=== PATIENT | male | born 1985 | race Hispanic/Latino ===

== ENCOUNTER 2022-08-30 16:58 | Emergency (ER) | payer OTHER, SELFPAY ==
[2022-08-30 17:21] VITALS: BP 144/82; PULSE 66; RESP 16; TEMP 37.3; O2SAT 100
--- NOTE | 2022-08-30 17:40 | ED.BACK ---
HPI - Back Pain/Injury General Chief Complaint: Back Pain/Injury Stated Complaint: pain in lower back Time Seen by Provider: 08/30/22 17:40 Source: [employer] Mode of arrival: ambulatory Limitations: no limitations History of Present Illness HPI Narrative: 37-year-old male presents with complaint of left-sided left low back pain radiating into left buttock and down left leg. Reports pain for 5 days. States started after bending down and picking something up off the ground. Taking [id number] meds pain medications with no relief. Ambulatory with steady gait. Denies numbness, weakness to lower extremities. No loss of bowel or bladder. No other complaints today. All systems reviewed and negative except as noted above. Related Data Allergies Allergy/AdvReac Type Severity Reaction Status Date / Time No Known Allergies Allergy Verified 08/30/22 17:24 Review of Systems Review of Systems: CONSTITUTIONAL: Denies fever, chills, or sweats. EYES: Denies visual changes, redness, or discharge. ENT: Denies rhinorrhea, congestion, sore throat, or otalgia. CARDIOVASCULAR: Denies chest pain, palpitations, or edema. RESPIRATORY: Denies cough or dyspnea. GASTROINTESTINAL: Denies abdominal pain, nausea, vomiting, or diarrhea. GENITOURINARY: Denies dysuria or hematuria. SKIN: Denies rash or itching. MUSCULOSKELETAL: Reports left lower back pain with radiation to left lower extremity. Denies joint pain, or myalgia. NEUROLOGIC: Denies headache, numbness, or weakness. PSYCHIATRIC: Denies anxiety or depression. All other systems reviewed are negative, except as documented in HPI. PMFSH Comments At time of signature, agree with nursing past medical, surgical, social and family history. There is no relevant family history pertinent to the presenting complaint. Exam Narrative: GENERAL: This is a well-nourished, well-developed patient, in no apparent distress. HEAD: normocephalic, atraumatic. EYES: PERRL. Sclera clear/white. Vision is grossly intact. EARS: External ears normal NOSE: External nose normal NECK: Neck supple, non-tender without lymphadenopathy, masses or thyromegaly. CARDIOVASCULAR: Regular rate and rhythm without murmurs, gallops, or rubs. RESPIRATORY: Clear to auscultation. Breath sounds equal bilaterally. No wheezes, rales, or rhonchi. SKIN: warm, Dry, intact with no suspicious lesions or rash, good texture and turgor. NEURO: awake, alert, and oriented to person, place and time. There were no obvious focal neurologic abnormalities. EXTREMITIES: No joint tenderness, effusion, or edema noted. BACK: no deformity. tenderness to left SI, left buttock. Positive left straight leg raise. bilateral lower extremity strength 5/5. Range of motion intact. Course Course Level of Care: Express Care Visit Vital Signs Vital signs: Vital Signs Temperature 37.3 C 08/30/22 17:21 Pulse Rate 66 08/30/22 17:21 Respiratory Rate 16 08/30/22 17:21 Blood Pressure 144/82 H 08/30/22 17:21 Pulse Oximetry 100 08/30/22 17:21 Oxygen Delivery Room Air 08/30/22 17:21 Temperature 37.3 C 08/30/22 17:21 Pulse Rate 66 08/30/22 17:21 Respiratory Rate 16 08/30/22 17:21 Blood Pressure 144/82 H 08/30/22 17:21 Pulse Oximetry 100 08/30/22 17:21 Oxygen Delivery Room Air 08/30/22 17:21 Reviewed MDM - Back Pain/Injury MDM Narrative Medical decision making narrative: will DC patient home with muscle relaxant, prednisone and ibuprofen for treatment of left sided sciatica pain. No neuro deficits noted at time of discharge. Patient agrees with plan of care. Patient is aware of diagnosis, understands and agrees to treatment plan. Anticipatory guidance given. Patient agrees to follow-up as directed and is aware of reasons to seek care at the emergency department. Portions of this record may have been created with voice recognition software Differential Diagnosis Differential diagno
== END 2022-08-30 18:03 | disposition home or self-care (01) ==
PROVIDERS: Emergency Provider Nurse Practitioner Family
DX: M54.42 Lumbago with sciatica, left side (principal); I10 Essential (primary) hypertension; Z98.84 Bariatric surgery status
CPT/HCPCS: 99213; G0463